=== PATIENT | male | born 1945 | race Caucasian/White ===

== ENCOUNTER → 2016-10-27 | Outpatient (CLI) | payer OTHER | LOC: BHCLAF 15:15 | PROVIDERS: ATTEND Internal Medicine Cardiovascular Disease | DX: I25.10 Atherosclerotic heart disease of native coronary artery without angina pectoris (principal); I10 Essential (primary) hypertension; E78.5 Hyperlipidemia, unspecified | CPT/HCPCS: 93005-PO ==

== ENCOUNTER → 2017-05-26 | Outpatient (CLI) | payer OTHER | LOC: BHFA 14:00 | PROVIDERS: ATTEND Internal Medicine Cardiovascular Disease | DX: I25.10 Atherosclerotic heart disease of native coronary artery without angina pectoris (principal) | CPT/HCPCS: 78452; 93017; A9500; J2785 ==

== ENCOUNTER 2017-06-02 07:21 | Day surgery (SDC) | payer OTHER ==
[2017-06-02] MEDS ORDERED: ASPIRIN EC 325 MG TAB PO ONE ×2 (07:28→07:55)
[2017-06-02] MEDS ORDERED: NS 1,000 ML IV ONE (07:28)
[2017-06-02] MEDS ORDERED: DIAZEPAM 5 MG TAB PO ONE (07:28)
[2017-06-02] MEDS ORDERED: diphenhydrAMINE 25 MG CAP PO ONE ×2 (07:28→07:55)
[2017-06-02] MEDS ORDERED: FAMOTIDINE 20 MG TAB PO ONE (07:28)
--- NOTE | 2017-06-02 07:49 | CPEKG ---
Heart Rate: 54 RR Interval: 1111 P-R Interval: 184 QRSD Interval: 152 QT Interval: 488 QTC Interval: 463 P [facility]: 34 QRS [facility]: 32 T Wave [facility]: 22 EKG Severity - ABNORMAL ECG - EKG Impression: SINUS BRADYCARDIA EKG Impression: RIGHT BUNDLE BRANCH BLOCK Electronically Signed By: Yimi Garcia 02-Jun-2017 15:34:50
[2017-06-02] MEDS ORDERED: FAMOTIDINE 20 MG TAB ONE (07:55)
[2017-06-02] MEDS ORDERED: DIAZEPAM 5 MG TAB ONE (07:56)
[2017-06-02 08:04] LABS: % IMMATURE GRANULYOCYTES 0.2 % (0.0-1.1); ABSOLUTE IMMATURE GRANULOCYTES 0.01 10^3/uL (0.00-0.10); ADD DIFF? NO; ADD MORPH? NO; ADD SCAN? NO; ATYPICAL LYMPHOCYTE FLAG 0 (0-99); FRAGMENT RBC FLAG 0 (0-99); HEMATOCRIT 45.6 % (40.0-51.0); HEMOGLOBIN 15.4 g/dL (13.7-17.5); LEFT SHIFT FLG 0 (0-99); LIPEMIA HEMOLYSIS FLAG 90 (0-99); MEAN CELL HEMOGLOBIN 29.8 pg (27.9-34.1); MEAN CELL HEMOGLOBIN CONCENTR. 33.8 g/dL (32.4-36.7); MEAN CELL VOLUME 88.4 fL (81.5-99.8); MEAN PLATELET VOLUME 11.4 fL (8.7-11.7); PLATELET CLUMPS FLAG 0 (0-99); PLATELET COUNT 190 10^3/uL (150-400); RED BLOOD CELL COUNT 5.16 10^6/uL (4.40-6.38); RED CELL DISTRIBUTION WIDTH 12.2 % (11.5-15.2)
[2017-06-02 08:15] LABS: INR 1.06 (0.83-1.16); PROTIME(PATIENT) 13.7 SEC (12.0-15.0)
[2017-06-02] MEDS ORDERED: fentaNYL 100 MCG/2 ML INJ ONE (08:19)
[2017-06-02] MEDS ORDERED: LIDOCAINE 1% 300 MG/30 ML SDV ONE (08:19)
[2017-06-02] MEDS ORDERED: IOPAMIDOL (ISOVUE-370) 150 ML BTL IV ONE (08:20)
[2017-06-02] MEDS ORDERED: MIDAZOLAM 2 MG/2 ML VIAL ONE (08:20)
[2017-06-02 08:30] LABS: ANION GAP 10 mEq/L (8-16); CALCIUM 9.2 mg/dL (8.5-10.4); CARBON DIOXIDE 27 mEq/l (22-31); CHLORIDE 107 mEq/L (97-110); CHOLESTEROL 116 mg/dL (140-220); CHOLESTEROL/HDL RATIO 4.46 RATIO (1.00-4.97); CREATININE 0.9 mg/dL (0.7-1.3); GLOMERULAR FILTRATION RATE > 60; GLUCOSE 90 mg/dL (70-100); HIGH DENSITY LIPOPROTEIN 26 mg/dL (40-65); LDL/HDL RATIO 2.35 RATIO (1.00-3.64); LOW DENSITY LIPOPROTEIN 61 mg/dL (80-100); MAGNESIUM 1.9 mg/dL (1.6-2.3); NON-HIGH DENSITY LIPOPROTEIN 90 mg/dL (90-129); POTASSIUM 4.2 mEq/L (3.5-5.2); SODIUM 144 mEq/L (134-144); TRIGLYCERIDE 147 mg/dL (40-150); VERY LOW DENSITY LIPOPROTEINS 29 mg/dL (8-25)
--- NOTE | 2017-06-02 09:39 | PDDXCAT ---
Diagnostic Cath Note - . Date: 06/02/17 [employer] Rec[employer]iter: Paul High-risk criteria on non-invasive testing: large, fixed perfusion defect w LV dilatation or increased lung uptake - Procedure Access: right groin Procedure: left heart catheterization, coronary angiography, left ventriculogram - Materials Left Heart Cath size: 6F Left Heart Cath materials: standard multipack (JL4, JR4, pigtail) - Findings-Left Heart Catheterization LM: Anatomically absent LAD: Medium diameter vessel with two principal diagonals (both slightly smaller than their respective take offs from the LAD). There appears to be mild disease to the proximal/mid LAD (<20%) without any flow limitations noted. LCX: Large caliber vessel with one principal OM (equal in magnitude to take off from the LCX). There are branches to the OM. No luminal irregularities were noted. The LCX is the dominant vessel. RCA: Small, diminuative vessel. No luminal irregularities were noted. EDP: 20 mm Hg LVEF: 55% Wall motion: Grossly normal Complications: none Estimated blood loss: <50ml Closure method: Angioseal Assessment: 71 y/o male with complaints of "fast heart rate" and a significant change to MPI results with a "new, large inferior fixed but partially reversible perfusion defect" and "reduction in LVEF to <50%". No critical CAD was noted. No LM was appreciated (there were two separate ostia for the LAD and LCX). LCX was the dominant vessel with a very small RCA. Normal LVEF was noted. Plan: Continued medical management. Regular and routine exercise. Would have patient follow up with cardiology in one week for follow up. Intervention: none
--- NOTE | 2017-06-02 09:51 | PDPROPOC ---
Sedation Plan of Care Sedation Plan of Care: vital signs stable, mental status noted, patient educated of risks, benefits, alternatives, patient can tolerate sedation ASA Classification: ASA 2 Planned drugs: midazolam Mallampati Score: Class 1 Mallampati Reference Image: Patient passed 3-3-2 rule?: Yes
--- NOTE | 2017-06-02 09:53 | PDGENHP ---
History and Physical History and Physical: There were no changes to the patient's physical exam findings or symptoms in between yesterday and today (patient was seen in the office yesterday). Risks and benefits of the procedure (left heart catheterization, coronary angiography, and left ventriculography) were discussed with the patient, and consent was signed.
== END 2017-06-02 13:27 | disposition home or self-care (01) ==
LOC: FCATH 07:21
PROVIDERS: ATTEND Internal Medicine Cardiovascular Disease
PROC: B2151ZZ Fluoroscopy of Left Heart using Low Osmolar Contrast (ICD-10-PCS; principal; 2017-06-02)
PROC: 4A023N7 Measurement of Cardiac Sampling and Pressure, Left Heart, Percutaneous Approach (ICD-10-PCS; principal; 2017-06-02)
PROC: B2111ZZ Fluoroscopy of Multiple Coronary Arteries using Low Osmolar Contrast (ICD-10-PCS; principal; 2017-06-02)
DX: I25.10 Atherosclerotic heart disease of native coronary artery without angina pectoris (principal); E78.5 Hyperlipidemia, unspecified; C61 Malignant neoplasm of prostate; I10 Essential (primary) hypertension; R94.39 Abnormal result of other cardiovascular function study
CPT/HCPCS: C1760; J1644; J2250; J3010; Q9967

== ENCOUNTER → 2017-09-18 | Outpatient (CLI) | payer OTHER | LOC: FIMAGING 14:32 | PROVIDERS: ATTEND Physician Assistant Medical | DX: M79.9 Soft tissue disorder, unspecified (principal); M76.9 Unspecified enthesopathy, lower limb, excluding foot ==

== ENCOUNTER → 2018-01-12 | Outpatient (CLI) | payer OTHER | LOC: FIMAGING 08:34 | PROVIDERS: ATTEND Physician Assistant | DX: Z13.820 Encounter for screening for osteoporosis (principal); Z79.52 Long term (current) use of systemic steroids ==

== ENCOUNTER → 2018-01-19 | Outpatient (CLI) | payer OTHER | LOC: BHCLAF 15:00 | PROVIDERS: ATTEND Internal Medicine Cardiovascular Disease | DX: I25.10 Atherosclerotic heart disease of native coronary artery without angina pectoris (principal); I10 Essential (primary) hypertension; E78.5 Hyperlipidemia, unspecified | CPT/HCPCS: 93005-PO ==

== ENCOUNTER → 2018-04-25 | Outpatient (CLI) | payer OTHER | LOC: FCPNEURO 20:00 | PROVIDERS: ATTEND Psychiatry & Neurology Sleep Medicine | DX: G47.33 Obstructive sleep apnea (adult) (pediatric) (principal) ==